=== PATIENT | female | born 1955 | race Two or more races ===

== ENCOUNTER 2021-11-18 13:39 | Outpatient (CLI) | payer OTHER | END 2021-11-18 13:49 | disposition home or self-care (01) | LOC: RAD 13:39 | PROVIDERS: ATTEND Internal Medicine Cardiovascular Disease | DX: M12.9 Arthropathy, unspecified (principal) ==

== ENCOUNTER 2022-01-14 11:39 | Outpatient (CLI) | payer OTHER | END 2022-01-14 11:52 | disposition home or self-care (01) | LOC: RAD 11:39 | DX: Z01.818 Encounter for other preprocedural examination (principal) ==

== ENCOUNTER 2022-01-22 10:46 | Outpatient (CLI) | payer OTHER | END 2022-01-22 11:00 | disposition home or self-care (01) | LOC: LAB 10:46 | PROVIDERS: ATTEND Urology | DX: N41.0 Acute prostatitis (principal); N39.0 Urinary tract infection, site not specified ==

== ENCOUNTER 2022-01-24 11:12 | Emergency (ER) | payer OTHER ==
[~2022-01-24] VITALS: Ht 175.3 cm; Wt 99.8 kg
== END 2022-01-24 16:04 | disposition home or self-care (01) ==
LOC: ER 11:12
DX: N39.0 Urinary tract infection, site not specified (principal); A49.8 Other bacterial infections of unspecified site

== ENCOUNTER 2022-02-19 12:28 | Inpatient (IN) | payer OTHER ==
[~2022-02-19] VITALS: Ht 175.3 cm; Wt 99.8 kg
[2022-02-19] MEDS ORDERED: METFORMIN HCL500 M3 (12:46)
[2022-02-19] MEDS ORDERED: LIPITOR40 MG (12:47)
[2022-02-19] MEDS ORDERED: ATACAND16 MG (12:47)
[2022-02-19] MEDS ORDERED: PEPCID AC20 MG (12:47)
[2022-02-19] MEDS ORDERED: SYNTHROID75 MCG (12:48)
== END 2022-02-20 11:21 | disposition home or self-care (01) | DRG 696 ==
LOC: ER 12:28 → MEDJ 17:00 → SURG 20:51
PROVIDERS: ADMIT Urology; ATTEND Urology
PROC: 0T9B70Z Drainage of Bladder with Drainage Device, Via Natural or Artificial Opening (ICD-10-PCS; principal; 2022-02-19)
DX: R31.29 Other microscopic hematuria (principal); Z20.822 Contact with and (suspected) exposure to COVID-19

== ENCOUNTER 2022-02-21 | Emergency (ER) | payer OTHER ==
[~2022-02-21] VITALS: Ht 175.3 cm; Wt 99.8 kg
[~2022-02-21] MED LIST: ATACAND16 MG; LIPITOR40 MG; METFORMIN HCL500 M3; PEPCID AC20 MG; SYNTHROID75 MCG
== END 2022-02-21 02:12 | disposition home or self-care (01) ==
LOC: ER
DX: T83.011A Breakdown (mechanical) of indwelling urethral catheter, initial encounter (principal)

== ENCOUNTER 2022-02-21 16:32 | Emergency (ER) | payer OTHER ==
[~2022-02-21] VITALS: Ht 162.6 cm; Wt 54.0 kg
== END 2022-02-21 18:20 | disposition home or self-care (01) ==
LOC: ER 16:32
DX: T83.011A Breakdown (mechanical) of indwelling urethral catheter, initial encounter (principal)

== ENCOUNTER 2023-01-22 09:04 | Outpatient (CLI) | payer OTHER | END 2023-01-22 09:06 | disposition home or self-care (01) | LOC: SONOGRAMA 09:04 | PROVIDERS: ATTEND Internal Medicine Cardiovascular Disease | DX: R10.9 Unspecified abdominal pain (principal) ==

== ENCOUNTER 2023-02-24 07:18 | Outpatient (CLI) | payer OTHER | END 2023-02-24 07:19 | disposition home or self-care (01) | LOC: NUCLEAR 07:18 | PROVIDERS: ATTEND Internal Medicine Cardiovascular Disease | DX: K80.10 Calculus of gallbladder with chronic cholecystitis without obstruction (principal) | CPT/HCPCS: 78227; A9537; J2805 ==